=== PATIENT | male | born 1985 | race Caucasian/White ===

== ENCOUNTER → 2019-03-14 | Outpatient (CLI) | payer OTHER ==
--- NOTE | 2019-03-14 22:49 | CONS ---
CONSULTATION DATE OF SERVICE: 03/14/2019 This patient is a 34-year-old gentleman who has been evaluated in the sleep center for possible obstructive sleep apnea hypopneas syndrome. HISTORY OF PRESENT ILLNESS/SLEEP-WAKE EVALUATION: Patient's usual sleep schedule on working days is from 10 or 11 p.m. until 4 a.m. and on weekends from around 10 or 11 p.m. until 7 or 9 a.m. No problems with falling asleep, although he used to read in the bedroom. Sleeps on the stomach and back position with loud snoring and awakenings with a dry mouth and choking up to 2 times at night with one episode of nocturia and witnessed episodes of stopped breathing during sleep. In the morning, the patient wakes up tired, has episodes of depression. [place] Sleepiness Scale is 6. PAST MEDICAL HISTORY: Positive for hypertension, nasal fracture. PAST SURGICAL HISTORY: None. SOCIAL HISTORY: Negative for smoking. Alcohol consumption up to 3 times per week. MEDICATIONS: 1. Losartan. 2. Hydrochlorothiazide. REVIEW OF SYSTEMS: Awakenings from sleep, sometimes tiredness and sleepiness during the day. FAMILY HISTORY: Positive for history of sleep apnea in his father, sister and daughter. Positive history of hypertension, heart problems, stroke, diabetes, acid reflux. PHYSICAL EXAMINATION: GENERAL: A pleasant gentleman without distress. VITAL SIGNS: BP 125/72, HR 74, RR 14, height 6 feet 3 inches, weight 309 pounds, body mass index 38.6, temperature 98.2, oxygen saturation at room air 96%. HEENT: PERRLA, EOMI. Evaluation of oropharynx showed tongue protrudes midline. Extremely low position of soft palate. Mallampati IV. Nose asymmetric. NECK: Supple. No JVD. Thyroid is not palpable. Wide neck; 18 inches in circumference. LUNGS: Clear to percussion and to auscultation. Good air exchange. No wheezing or rhonchi. HEART: S1, S2 regular. No murmurs, gallops or rubs. ABDOMEN: Obese. EXTREMITIES: No clubbing or cyanosis. [employer]: Awake, alert, and oriented X3. Cranial nerves 2 to 7 intact. There is no fasciculation or atrophy. noted. No focal deficits observed. IMPRESSION: 1. Loud snoring, witnessed episodes of stopped breathing during sleep, awakenings from sleep with choking, low soft palate, Mallampati IV, wide neck, episodes of sleepiness; obstructive sleep apnea-hypopnea syndrome. 2. Obesity; body mass index 38.6. 3. Hypertension. 4. Status post nasal fracture; nasal septum deviation. PLAN: 1. Polysomnography for evaluation of patient's breathing during sleep. 2. CPAP/BiPAP titration if sleep study confirms obstructive sleep apnea-hypopnea syndrome. 3. Preferable position during sleep on the side. 4. No driving if patient feels any sleepiness. 5. I will see patient for follow up visit to explain results of testing and following plan. Thank you very much for referring this patient for consultation. Sincerely, Faisal Craig MD, PhD, FAASM Diplomat of [place] [employer] [place] [employer] Associate of [facility] [place] [id number] / AISHWARYA: [id number] /
== END ==
LOC: SLEEP 15:46
PROVIDERS: ATTEND Internal Medicine
DX: G47.33 Obstructive sleep apnea (adult) (pediatric) (principal); E66.9 Obesity, unspecified; J34.2 Deviated nasal septum; I10 Essential (primary) hypertension; Z68.38 Body mass index [BMI] 38.0-38.9, adult; Z98.890 Other specified postprocedural states; Z79.899 Other long term (current) drug therapy
CPT/HCPCS: 99211